=== PATIENT | female | born 2000 | race Caucasian/White ===

== ENCOUNTER 2019-10-10 15:10 | Outpatient (CLI) | payer BC, SELFPAY ==
--- NOTE | ~2019-10-10 | MR_ITS ---
EXAMINATION: MR ankle LT wo con DATE: 10/10/2019 16:12 INDICATION: Left ankle pain. TECHNIQUE: Magnetic resonance imaging (MRI) of the left ankle was performed without intravenous contr ast. Sequences included sagittal PD-weighted FS FSE, sagittal PD-weighted FSE, coronal PD-weighted FS FSE, coronal PD-weighted FSE, axial PD-weighted FS FSE, and axial PD-weighted FSE. COMPARISON: Left ankle radiographs 10/02/2019 FINDINGS: Medial ankle ligaments: The superficial and deep components of the deltoid ligament are normal. Lateral ankle ligaments: The anterior and posterior talofibular ligaments, calcaneofibular ligament, and posterior tibiofibula r ligament are normal. There are changes of prior sprain of anterior tibiofibular ligament characteri zed by increased signal intensity. Tendons: The peroneal tendons and anterior and medial ankle tendons are normal. There is mild Achilles tendino sadie. Plantar fascia: Normal. Bones/other: Bone alignment is normal. There is an osteochondral lesion of medial talar dome measuring 15 mm anter ior to posterior by 10 mm medial to lateral with cortical irregularity, subchondral edema, and partia l thickness cartilage loss. No unstable fragment. Fluid: There is a small subtalar joint effusion. IMPRESSION: 1. 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 Reviewed, dictated and finalized at location A.
== END 2019-10-10 15:11 | disposition home or self-care (01) ==
PROVIDERS: PCP Pediatrics; Visit Provider Orthopaedic Surgery
DX: M25.572 Pain in left ankle and joints of left foot (principal); M87.00 Idiopathic aseptic necrosis of unspecified bone
CPT/HCPCS: 73721

== ENCOUNTER 2020-04-17 02:03 | Outpatient (CLI) | payer BC, SELFPAY ==
[2020-04-17 20:00] LABS: SARS-CoV-2 RNA PCR Negative
== END 2020-04-17 02:04 | disposition home or self-care (01) ==
LOC: ANHCOVIDDT 02:03
PROVIDERS: PCP Pediatrics; Visit Provider Orthopaedic Surgery
DX: Z01.812 Encounter for preprocedural laboratory examination (principal); Z20.828 Contact with and (suspected) exposure to other viral communicable diseases
CPT/HCPCS: 87635; C9803; U0003

== ENCOUNTER 2020-04-20 01:23 | Day surgery (SDC) | payer BC, SELFPAY ==
[2020-04-15 15:47] VITALS: BMI 19.6
--- NOTE | 2020-04-17 11:41 | PM.IMHP ---
H&P: HPI History of Present Illness Date/Time: 04/17/20 11:41 Chief Complaint: Left ankle pain Narrative: Jania Izaguirre is a 19 year old female Pt presents with Left ankle pain. She injured her ankle, playing soccer, in 2016. There is no new injury. She states she started running and noticed increased pain, during activity. Pt had MRI 10/10/19 Involved foot/ankle: left Onset: sudden (2016) Location of pain: anterior ankle, posterior ankle and medial foot (medial ankle) Character: throbbing and dull ache Timing of pain: weight bearing Exacerbated by: running, weight bearing, rotational activities and prolonged activity Relieved by: Tylenol and rest Associated symptoms: Reports weakness History of occupational/recreational activity with repetitive motion: Yes Activity type: running History of prior foot/ankle injury: Yes Duration: years Severity: moderate Associated signs and symptoms: symptoms reported: (see hpi) Exacerbating/relieving factors: exacerbating factors: (see hpi) and relieving factors: (see hpi) Review of Systems Constitutional: Constitutional: Denies fever(s) Eyes: Eyes: Denies blurry vision ENT: Reports Normal hearing present Cardiovascular: Cardiovascular: Denies chest pain and Denies dyspnea Respiratory: Respiratory: Denies dyspnea and Denies wheezing Gastrointestinal: Gastrointestinal: Denies abdominal pain Genitourinary: Genitourinary: Denies urinary urgency Musculoskeletal: Musculoskeletal: Reports as per HPI and Denies numbness Integumentary/Breasts: Skin/Breast: Denies changing lesions and Denies sores Neurologic: Reports Normal hearing present, Denies behavioral changes, Denies confusion, Denies numbness and Denies convulsions Psychiatric: Psychiatric: Denies behavioral changes, Denies confusion and Denies hallucinations Endocrine: Endocrine: Denies heat intolerance Hematologic/Lymphatic: Hematologic/Lymphatic: Denies easy bleeding Allergic/Immunologic: Allergic/Immunologic: Denies wheezing PMFSH Past Medical History Medical History Eczema Osteochondral lesion of talar dome Family History Family History Father Diabetes mellitus Grandparent Heart disease Hypertension Cancer Diabetes mellitus Social History Social History Smoking status: Never smoker Alcohol intake: current Drinks per week: 3 Gender identity (if verbalized by the patient): Female Spiritual care concerns: No Meds Home Medications and Allergies Home Medications Medication Instructions Recorded Confirmed Type cetirizine [Zyrtec] 10 mg PO PRN PRN 04/15/20 04/15/20 History Allergies Allergy/AdvReac Type Severity Reaction Status Date / Time No Known Allergies Allergy Mild Verified 04/15/20 15:34 Exam Const: General: No confusion Orientation/consciousness: No confusion HENMT: Head: normal to inspection, normocephalic and atraumatic Eyes: Conjunctivae: conjunctivae normal Sclera: sclerae normal Neck: Neck: supple and nontender Chest: Chest palpation & inspection: normal inspection of the chest Resp: Effort & Inspection: normal respiratory effort and no audible wheezes Cardio: Rate: regular rate Rhythm: regular rhythm : General: Yes deferred Skin: General skin exam: no rashes or lesions noted Neuro: General: No confusion Extrem: General: capillary refill normal Right upper extremity: normal to inspection Left upper extremity: normal to inspection Right lower extremity: normal to inspection, hip/thigh Details: normal to inspection, ankle Details: no tenderness and no swelling and foot Details: normal capillary refill, toes with normal ROM and vascular exam Details: dorsalis pedis pulse present and normal capillary refill Left lower extremity: hip/thigh Details: normal to inspection, knee Details:
[2020-04-20] VITALS (8 sets, daily range): BP systolic 86–124; BP diastolic 46–91; PULSE 61–96; RESP 12–20; TEMP 36.4–36.7; O2SAT 96–100
[2020-04-20] MEDS: ACETAMINOPHEN 500 MG TABLET 1000 MG PO (06:28)
[2020-04-20] MEDS: LACTATED RINGERS 1,000 ML 30 ML IV CONT ×2 (06:30→08:54)
[2020-04-20] MEDS: KETOROLAC 15 MG/ML VIAL (*BKC) IV PUSH (06:33)
--- NOTE | 2020-04-20 06:54 | WPDHPUPDATE1 ---
History and Physical Update Update Date/Time: 04/20/20 06:54 History and Physical has been reviewed, including an updated exam of the patient. There are NO changes in the patient's condition. Covid test negative. Risks, benefits, and alternatives have been discussed and questions answered. Patient agrees to proceed with procedure.
--- NOTE | 2020-04-20 07:12 | WPDANESEPPF ---
Anes - Initial Pre Proc Eval Procedure: Operation Date: 04/20/20 07:30 Proposed Procedures p Left Ankle Arthroscopy With Debridement, Microfracture Osteochondral Defect Of Talus - Dru Maher MD Date/Time: 04/20/20 07:12 Surgeon: Dru Maher MD Pre Op Diagnosis: Left Osteochondral Lesion of Talar Dome Patient Data Age: 19 Gender: F Height: 5 ft 5 in Weight: 54 kg Last Vital Signs Temp 98.0 F 04/20/20 06:09 Pulse 88 04/20/20 06:09 Resp 20 04/20/20 06:09 BP 115/73 04/20/20 06:09 Pulse Ox 100 04/20/20 06:09 Allergies Allergy/AdvReac Type Severity Reaction Status Date / Time No Known Allergies Allergy Mild Verified 04/20/20 06:36 Home Medications Medication Instructions Recorded Confirmed Type cetirizine [Zyrtec] 10 mg PO PRN PRN 04/15/20 04/20/20 History ondansetron HCl [Zofran] 4 mg PO Q8H PRN #10 tablet 04/20/20 Rx Patient hx anesthesia problems: none Family hx anesthesia problems: none PMFSH Past Medical History Medical History Eczema Osteochondral lesion of talar dome Family History Family History Father Diabetes mellitus Grandparent Heart disease Hypertension Cancer Diabetes mellitus Social History Social History Smoking status: Never smoker Alcohol intake: current Drinks per week: 3 Living arrangements: with family Gender identity (if verbalized by the patient): Female Spiritual care concerns: No Anes - Eval Final PreProcedure Day of Procedure 04/20/20 07:12 Patient weight: normal Heart: regular rate and rhythm Lungs: clear to auscultation Airway: Mallampati scale class II Neurological: alert and oriented Last oral intake: >/= 8 hours ASA classification: II Emergent: no Anesthetic plan: proceed Anesthesia type and monitoring: general LMA and standard monitoring Informed Consent: The patient's anesthetic plan and its attendant risks and benefits were discussed with the patient/family/POA. Questions were solicited and answers provided to the satisfaction of the patient/family/POA.
[2020-04-20] MEDS: ceFAZolin 2 GM/D5W 50 ML 2 GM/50 ML BAG IVPB (07:28)
[2020-04-20] MEDS: BUPIVACAINE HCL 0.5% PF 30 ML VIAL 10 ML INFILTRATE (08:05)
--- NOTE | 2020-04-20 09:03 | PM.PROC ---
Procedure Note - Detailed Date of procedure: 04/20/20 Pre-op diagnosis: Left Osteochondral Lesion of Talar Dome Post-op diagnosis: same Procedure performed: Left ankle arthroscopy with debridement, microfracture osteochondral defect Description of procedure: Indications: Patient is a 19-year-old woman with left ankle pain after an injury. MRI demonstrates osteochondral lesion. Patient has failed conservative treatment with therapy, ice, activity modification and bracing. Presents now for operative treatment. What was done: Patient identified in the preoperative holding. Informed consent given. Operative extremity marked. Patient received intravenous antibiotics. Patient brought to the operating room where underwent general anesthetic by anesthesia team. Positioned supine on operating room table. Time-out performed confirming the patient, site of the surgery and the plan. Lower extremity prepped and draped usual sterile surgical fashion using a ChloraPrep skin solution from the knee to the toes. Leg been placed into a posterior thigh holt with the hip and flexed. A noninvasive ankle distractor was applied and distraction was placed across the ankle. Anatomic landmarks were mapped out on the skin. Standard anteromedial camera portal was established 1st with an 18 gauge needle for positioning followed by an 11 blade knife for skin and blunt penetration of the soft tissue and capsule. Camera and inflow were started. The ankle joint was inspected. Hypertrophic synovium anterior medial and lateral portion of the ankle joint noted. Osteochondral defect of the posterior medial corner of the talar dome approximately 1.5 cm anterior to posterior and 1.1 cm medial to lateral. Rest of the ankle joint cartilage intact. Anterolateral working portal was then established again using an 18 gauge needle followed by an 11 blade knife for the skin and blunt penetration of the soft tissue and capsule. 2.7 mm shaver was introduced and debridement of the ankle joint was performed including the medial and lateral gutters and the anterior hypertrophic synovium. Any loose or unstable cartilage was debrided. Arthroscopic Wand was introduced to control bleeding. The curette was then used to remove the loose cartilage portion of the osteochondral lesion. Shaver was used to debride the remaining rim of cartilage. Chondral picks were then used to penetrate the subchondral bone surface. Good bleeding bone was noted. 100 cc of fluid was irrigated through the ankle and suctioned out. .25% Marcaine, plain was used for anesthetic. Sterile dressing applied. The patient was then woken from anesthesia, extubated and taken to the recovery room in stable condition. All sponge, needle, instrument counts were correct at the end of the case. Implants: None Anesthesia: GLMA Surgeon: Dru Maher MD [employer] Officer: 1st assistant to the ceo Estimated blood loss (mL): 5 Tourniquet time (min): 0 Drains: No Packing: No Pathology: none sent Complications: None Condition: stable Disposition: PACU
== END 2020-04-20 10:28 | disposition home or self-care (01) ==
PROVIDERS: PCP Pediatrics; Visit Provider Orthopaedic Surgery
PROC: (CPT 29891; principal; 2020-04-20 07:30)
DX: M95.8 Other specified acquired deformities of musculoskeletal system (principal); M24.172 Other articular cartilage disorders, left ankle; M25.572 Pain in left ankle and joints of left foot; Z87.828 Personal history of other (healed) physical injury and trauma
CPT/HCPCS: 29891; 29897; A9270; J0690; J1100; J1885; J2250; J2405; J2704; J3010; J7120